=== PATIENT | male | born 1980 | race Caucasian/White ===

== ENCOUNTER 2017-02-16 13:39 | Inpatient (IN) | payer MEDICAID, OTHER ==
--- NOTE | 2017-02-16 14:00 | ED ---
Psych HPI - General Stated Complaint: Mental Health Time Seen by Provider: 02/16/17 13:50 Source: patient, EMS, RN notes reviewed Mode of arrival: EMS Limitations: no limitations - History of Present Illness Initial Comments: 36-year-old male presents emergency department via EMS from [place] for mental health evaluation. Patient states she has a history of schizophrenia states that he was on medication but states that he was in [facility] stopped taking them. Patient states that he stated he just did not need them anymore. Patient states that he does have a history of heroin and methamphetamine use. Patient states he is currently at rehab day 2 of these. Patient states that his been having ongoing issues of hallucinations. Patient states that he sees and hears people talking to home. Patient states that his family and kids take videos of them doing these things and states that he cannot stop them. Patient denies any homicidal or suicidal thoughts. Denies any alcohol use - Related Data Home Medications Medication Instructions Recorded Confirmed No Known Home Medications [No 02/16/17 02/16/17 Known Home Medications] Allergies Allergy/AdvReac Type Severity Reaction Status Date / Time Penicillins Allergy Unknown Verified 02/16/17 14:41 Review of Systems ROS Statement: Those systems with pertinent positive or pertinent negative responses have been documented in the HPI. ROS Other: All systems not noted in ROS Statement are negative. Past Medical History Past Medical History: No Reported History History of Any Multi-Drug Resistant Organisms: None Reported Past Surgical History: No Surgical Hx Reported Past Psychological History: ADD/ADHD, Schizophrenia Smoking Status: Current every day smoker Past Drug Use History: Cocaine, Heroin, IV Drug Use, Methamphetamine, Opiates, Prescription Drug Abuse General Exam Limitations: no limitations General appearance: alert, in no apparent distress Head exam: Present: atraumatic, normocephalic, normal inspection Eye exam: Present: normal appearance, PERRL, EOMI. Absent: scleral icterus, conjunctival injection, periorbital swelling ENT exam: Present: normal exam, mucous membranes moist Neck exam: Present: normal inspection. Absent: tenderness, meningismus, lymphadenopathy Respiratory exam: Present: normal lung sounds bilaterally. Absent: respiratory distress, wheezes, rales, rhonchi, stridor Cardiovascular Exam: Present: regular rate, normal rhythm, normal heart sounds. Absent: systolic murmur, diastolic murmur, rubs, gallop, clicks Neurological exam: Present: alert, oriented X3, CN II-XII intact Psychiatric exam: Present: anxious. Absent: homicidal ideation, suicidal ideation Skin exam: Present: warm, dry, intact, normal color. Absent: rash Course Vital Signs 02/16/17 02/16/17 13:53 15:42 Temperature 97.8 F 96.7 F L Pulse Rate 111 H 91 Respiratory 18 20 Rate Blood Pressure 106/61 121/81 O2 Sat by Pulse 98 97 Oximetry Medical Decision Making - Lab Data Lab Results 02/16/17 Range/Units 14:18 Urine Opiates Screen Detected H (NotDetected) Ur Oxycodone Screen Not Detected (NotDetected) Urine Methadone Screen Not Detected (NotDetected) Ur Propoxyphene Screen Not Detected (NotDetected) Ur Barbiturates Screen Not Detected (NotDetected) U Tricyclic Antidepress Not Detected (NotDetected) Ur Phencyclidine Scrn Not Detected (NotDetected) Ur Amphetamines Screen Detected H (NotDetected) U Methamphetamines Scrn Detected H (NotDetected) U Benzodiazepines Scrn Detected H (NotDetected) Urine Cocaine Screen Not Detected (NotDetected) U Marijuana (THC) Screen Not Detected (NotDetected) Disposition Clinical Impression: Psychosis, Schizophrenia Disposition: ADMITTED IP TO THIS [facility] Condition: Stable Referrals: None,Stated [Primary Care Provider] - 1-2 days
[2017-02-16] MEDS ORDERED: MAG HYDROX/AL HYDROX/SIMETH 30 ML CUP PO PRN (20:55)
[2017-02-16] MEDS ORDERED: ACETAMINOPHEN TAB 325 MG TAB PO PRN (20:55)
[2017-02-16] MEDS ORDERED: MAGNESIUM HYDROXIDE 2,400 MG/10 ML CUP PO PRN (20:55)
[2017-02-16] MEDS ORDERED: cloNIDine HCL 0.1 MG TAB PO PRN (21:11)
[2017-02-16] MEDS ORDERED: LOPERAMIDE 2 MG CAP PO PRN (21:14)
[2017-02-16] MEDS ORDERED: ONDANSETRON 4 MG TAB PO PRN (21:15)
[2017-02-16] MEDS: NICOTINE 21MG/24HR PATCH TRANSDERM SCH (22:02)
[2017-02-16] MEDS: OLANZapine 5 MG TAB PO SCH (22:02)
[2017-02-17] MEDS: NICOTINE 21MG/24HR PATCH TRANSDERM SCH (09:08)
[2017-02-17 09:49] LABS: Basophils % (A) 0 %; CH 31.9; CHCM 35.4; Eosinophils # (A) 0.1 k/uL (0-0.7); Eosinophils % (A) 1 %; HCT 41.3 % (39.0-53.0); HDW 2.96; HGB 14.5 gm/dL (13.0-17.5); Luc # (Auto) 0.15; Luc % (Auto) 2; Lymphocytes # (A) 2.5 k/uL (1.0-4.8); Lymphocytes % (A) 36 %; MCH 31.9 pg (25.0-35.0); MCHC 35.2 g/dL (31.0-37.0); MCV 90.5 fL (80.0-100.0); Mean Platelet Volume 6.9; Monocytes # (A) 0.3 k/uL (0-1.0); Monocytes % (A) 4 %; Neutrophils # (A) 3.8 k/uL (1.3-7.7); Neutrophils % (A) 56 %; RBC 4.57 m/uL (4.30-5.90); RDW 12.6 % (11.5-15.5); WBC 6.9 k/uL (3.8-10.6); WBC (Perox) 7.08
[2017-02-17 10:24] LABS: ALT 70 U/L (21-72); AST 44 U/L (17-59); Alkaline Phosphatase 92 U/L (38-126); Anion Gap 12 mmol/L; Blood Urea Nitrogen 12 mg/dL (9-20); Calcium 9.7 mg/dL (8.4-10.2); Carbon Dioxide 31 mmol/L (22-30); Chloride 99 mmol/L (98-107); Non-African American GFR(MDRD) >60 (>60 ml/min/1.73 sqM); Potassium 3.8 mmol/L (3.5-5.1); Sodium 142 mmol/L (137-145); Total Bilirubin 0.4 mg/dL (0.2-1.3); Total Protein 7.8 g/dL (6.3-8.2)
[2017-02-17 10:33] LABS: Glucose 50 mg/dL (74-99)
[2017-02-17 10:42] LABS: Glucose,Whole Blood 90 mg/dL (75-99)
--- NOTE | 2017-02-17 16:03 | P.HP ---
Psychiatric H&P - . H&P Date: 02/17/17 History & Physical: Allergies Allergy/AdvReac Type Severity Reaction Status Date / Time Penicillins Allergy Unknown Verified 02/16/17 14:41 Vital Signs Temp 97.7 F 02/17/17 06:54 Pulse 89 02/17/17 06:54 Resp 16 02/17/17 06:54 BP 106/68 02/17/17 06:54 Pulse Ox 97 02/16/17 15:42 Intake & Output 02/16/17 02/17/17 02/17/17 18:59 06:59 18:59 Weight 83.915 kg Laboratory Last Values WBC 6.9 k/uL (3.8-10.6) 02/17/17 09:11 RBC 4.57 m/uL (4.30-5.90) 02/17/17 09:11 Hgb 14.5 gm/dL (13.0-17.5) 02/17/17 09:11 Hct 41.3 % (39.0-53.0) 02/17/17 09:11 MCV 90.5 fL (80.0-100.0) 02/17/17 09:11 MCH 31.9 pg (25.0-35.0) 02/17/17 09:11 MCHC 35.2 g/dL (31.0-37.0) 02/17/17 09:11 RDW 12.6 % (11.5-15.5) 02/17/17 09:11 Plt Count 263 k/uL (150-450) 02/17/17 09:11 Neutrophils % 56 % 02/17/17 09:11 Lymphocytes % 36 % 02/17/17 09:11 Monocytes % 4 % 02/17/17 09:11 Eosinophils % 1 % 02/17/17 09:11 Basophils % 0 % 02/17/17 09:11 Neutrophils # 3.8 k/uL (1.3-7.7) 02/17/17 09:11 Lymphocytes # 2.5 k/uL (1.0-4.8) 02/17/17 09:11 Monocytes # 0.3 k/uL (0-1.0) 02/17/17 09:11 Eosinophils # 0.1 k/uL (0-0.7) 02/17/17 09:11 Basophils # 0.0 k/uL (0-0.2) 02/17/17 09:11 Sodium 142 mmol/L (137-145) 02/17/17 09:11 Potassium 3.8 mmol/L (3.5-5.1) 02/17/17 09:11 Chloride 99 mmol/L (98-107) 02/17/17 09:11 Carbon Dioxide 31 mmol/L (22-30) H 02/17/17 09:11 Anion Gap 12 mmol/L 02/17/17 09:11 BUN 12 mg/dL (9-20) 02/17/17 09:11 Creatinine 0.80 mg/dL (0.66-1.25) 02/17/17 09:11 Est GFR (MDRD) Af Amer >60 (>60 ml/min/1.73 sqM) 02/17/17 09:11 Est GFR (MDRD) Non-Af >60 (>60 ml/min/1.73 sqM) 02/17/17 09:11 Glucose 50 mg/dL (74-99) L* 02/17/17 09:11 POC Glucose (mg/dL) 90 mg/dL (75-99) 02/17/17 10:36 POC Glu [employer] ID Carlee Trevizo 02/17/17 10:36 Calcium 9.7 mg/dL (8.4-10.2) 02/17/17 09:11 Total Bilirubin 0.4 mg/dL (0.2-1.3) 02/17/17 09:11 AST 44 U/L (17-59) 02/17/17 09:11 ALT 70 U/L (21-72) 02/17/17 09:11 Alkaline Phosphatase 92 U/L (38-126) 02/17/17 09:11 Total Protein 7.8 g/dL (6.3-8.2) 02/17/17 09:11 Albumin 4.5 g/dL (3.5-5.0) 02/17/17 09:11 Urine Opiates Screen Detected (NotDetected) H 02/16/17 14:18 Ur Oxycodone Screen Not Detected (NotDetected) 02/16/17 14:18 Urine Methadone Screen Not Detected (NotDetected) 02/16/17 14:18 Ur Propoxyphene Screen Not Detected (NotDetected) 02/16/17 14:18 Ur Barbiturates Screen Not Detected (NotDetected) 02/16/17 14:18 U Tricyclic Antidepress Not Detected (NotDetected) 02/16/17 14:18 Ur Phencyclidine Scrn Not Detected (NotDetected) 02/16/17 14:18 Ur Amphetamines Screen Detected (NotDetected) H 02/16/17 14:18 U Methamphetamines Scrn Detected (NotDetected) H 02/16/17 14:18 U Benzodiazepines Scrn Detected (NotDetected) H 02/16/17 14:18 Urine Cocaine Screen Not Detected (NotDetected) 02/16/17 14:18 U Marijuana (THC) Screen Not Detected (NotDetected) 02/16/17 14:18 02/17/17 15:44 Identification: Patient is a 36-year-old male who was transferred from [facility] after he began to voice auditory hallucinations, having paranoid thoughts. He had gone to [facility] for rehab from using crystal methamphetamine and heroin IV. History of Present Illness: Patient states that he was at [facility] for 2 days, and on the day of admission prior to going to [facility] he shot up with methamphetamine IV. Patient states that he also had a raid on his house by the drug task force at [place] 4 days prior to his admission to [facility], stating they did not find any drugs at his house. Patient states that for the last 3 months he has been using crystal methamphetamine and heroin IV and has also been using alcohol fifth a day for the last 6 months. Patient states when he went to [facility] he began to hear voices, a person called Brad but he states now he couldn't tell me if it was in his head or if that was other people there. He states he felt that people were watching him, talking about him and was becoming paranoid. He states that he did not have any suicidal ideation and there and states that he had not slept for at least 4 days prior to going to [facility], and did not sleep why he was there. He also stated that he was having visual hallucinations of seeing light flashes while he was at [facility] and has when he is used methamphetamine in the past. Patient is not able to endorse any manic symptoms, depressive symptoms and states that he has not had the above psychotic symptoms at any other time. Patient states that he has never had any suicidal thoughts and has never made any suicide attempts in the past. Patient was recently released from senior care 8 months ago and is currently on parole until June 13. He states he has been routinely drug tested by his privacy officer on a weekly basis. He states that he was using alcohol while he was in senior care. Past Psychiatric History: Denies any prior psychiatric inpatient treatment or psychiatric outpatient treatment. He states as a child he was placed on Ritalin by his heating unit installer for ADHD and was on it for 5 years but quit himself. He states he has been at [facility] on 2 prior occasions once in 2004 and once in 2010 he left after 6 days on both occasions. He has never attended any AA or NA meetings. Past Medical/Surgical History: Patient states that he has no medical history and has never had any surgeries and has an ALLERGY to penicillin. Home Medications Medication Instructions Recorded Confirmed No Known Home Medications [No 02/16/17 02/16/17 Known Home Medications] Family History: Patient states he has a maternal cousin who is diagnosed with schizophrenia, his father is an alcohol abuser and he states he has a paternal uncle who completed suicide Social History: Patient was born and raised in [place] and both of his parents are alive. He has one brother. He states he quit school at the 11th grade and has never obtained a GED. He reports that he has been working in [employer] and last worked 1 month ago but was fired due to the number of absences that he had. He has never been and has one daughter age 9 from a prior partner with whom he shares custody. Patient states that his current partner is and that she does not use any drugs or alcohol. They have been together for 3 years. He denies any history of abuse. Substance Use History: Patient states he began using marijuana at the age of 21 but is not used it recently, began using cocaine and heroin IV at the age of 24 and began using methamphetamine at the age of 26. He reports his alcohol use has been a pint a day, he began using at the age of 26 and has used this much since his release from senior care 8 months ago. Patient has been using crystal meth amphetamine and heroin IV on a daily basis for the last 3 months. Patient does use tobacco products. 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 Patient has also been charged with attempted larceny of a firearm, maintaining a drug house 2 and has spent a total of 8 years in senior care. Mental Status:Appearance/Attitude: Patient is dressed in a hospital gown, makes good eye contact and is cooperative. Behavior: He did not display any psychomotor agitation or retardation. Speech/Language: Patient's speech was spontaneous and of normal volume and rhythm and he was coherent. Thought Process: Patient was goal-directed and there is no evidence of circumstantial or tangential thought and no loose associations or flight of ideas. Thought Content: Patient reports that he was hearing voices at [facility], identifying him as Brad but states that he was not telling him to do anything and states that he is currently not hearing those voices, he states that he was seeing light flashes but is currently not having those anymore. Patient states he is still slightly suspicious that people are talking about him , watching him states that he was more paranoid when he was at [facility]. Patient states that he had not slept for 4 days prior to going to [facility] and did not sleep why he was there but reports that he did sleep last evening and has been able to eat here today without any nausea or vomiting. He also reports that his thinking is much clearer Suicidal/Homicidal Ideation: Patient denies any current suicidal or homicidal ideation. Sensorium/Cognition: Patient is alert and oriented to person, place, and time and his memory is grossly intact. Mood/Affect: Patient's mood is slightly guarded and his affect is appropriate. Insight/Judgement: Patient's insight and judgment are poor. Intellectual Functioning: Patient's intellectual functioning appears average. Strength/Weaknesses: Patient has a supportive partner/substance abuse Assessment: Patient was transferred from [facility] after he was reporting paranoid ideation and auditory hallucinations as well as visual hallucinations which appear to be related to his withdrawal from methamphetamine and heroin use. Patient was also abusing alcohol prior to his admission. Patient reports he is feeling better now and has been taking Zyprexa 15 mg he thinks at [facility]. Patient is no longer verbalizing auditory hallucinations but still remains slightly paranoid but states he is now sleeping and eating better. Her social work assessment in speaking with patient's significant other she stated that his mother reported that he was diagnosed with schizophrenia as a child. Admission Diagnoses: Substance induced psychotic disorder, rule out schizophrenia, methamphetamine use disorder, severe; opioid use disorder, severe ; alcohol use disorder, moderate Plan: Patient was admitted on a voluntary basis, routine laboratory studies were ordered in medical consultation was requested. Patient was also ordered group and activity therapy and was placed on routine precautions. Patient was continued on Zyprexa 15 mg at bedtime to target his psychotic symptoms. Patient was also observed for withdrawal and supportive treatment was ordered. Patient is requesting to return to [facility] after he is stabilized here to continue his rehab. Patient requires hospitalization to stabilize his psychotic symptoms. 02/17/17 15:58 02/17/17 16:01
--- NOTE | 2017-02-17 16:04 | P.HPMEDMHU ---
History of Present Illness H&P Date: 02/17/17 Chief Complaint: Shaking Patient is a 36-year-old male past medical history of heroin and methamphetamine addiction, tobacco abuse, and alcohol abuse who initially was at [facility] for detox. He developed hallucinations there and was subsequently transferred to our psychiatry unit. We have been asked to see him in medical evaluation. Patient seen and examined in library. He states that he is having withdrawal from alcohol and heroin. He states he has had this many times before when he has detox. He reports nausea, tremors, decreased appetite, not having 8 anything in several days, diaphoresis, and a woozy feeling. He has no other complaints currently. He does admit to me that he sometimes sees things that are not there. He believes he only needs withdrawal care. Discussed with nursing and blood sugar was slightly low this morning. Review of Systems General: Positive chills, + tremor, no weight loss/weight gain, + decreased appetite Eyes: No double vision, no unusual blurry vision, no loss of vision ENT: No rhinorrhea, congestion, no trush Cardiovascular: No chest pain, no palpitations, no syncope, no edema, Noo paroxysmal nocturnal dyspnea, No dizziness Pulmonary: No shortness of breath, no wheezing, no cough, hemoptysis Abdominal: No abdominal pain, no constipation, no diarrhea, + nausea/vomiting, no distention Genitourinary: No dysuria, no urinary frequency, no hematuria, no unusual discharge/odor Neuro: + Tremor + dizziness , No unusual paresthesias, no unusual paresis/ paralysis, no headache Dermatologic: No unusual rashes, no unusual lesions, no unusual changes in nails Endocrinology: No intolerance to heat/cold, no excessive thirst,] no unusual fatigue Hematologic: No unusual bruising or bleeding, no unusual cervical lymphadenopathy Psychiatric: Positive hallucinations, positive increased sleep during the day Past Medical History Past Medical History: No Reported History History of Any Multi-Drug Resistant Organisms: None Reported Past Surgical History: No Surgical Hx Reported Past Psychological History: ADD/ADHD, Schizophrenia Smoking Status: Current every day smoker Past Alcohol Use History: Heavy Past Drug Use History: Cocaine, Heroin, IV Drug Use, Methamphetamine, Opiates, Prescription Drug Abuse Additional History: Patient denies any family history of heart disease, stroke, diabetes Medications and Allergies Home Medications Medication Instructions Recorded Confirmed Type No Known Home Medications [No 02/16/17 02/16/17 History Known Home Medications] Allergies Allergy/AdvReac Type Severity Reaction Status Date / Time Penicillins Allergy Unknown Verified 02/16/17 14:41 Physical Exam Osteopathic Statement: *. No significant issues noted on an osteopathic structural exam other than those noted in the History and Physical/Consult. Vitals: Vital Signs Temp Pulse Resp BP BP 02/17/17 06:54 97.7 F 89 16 106/68 02/16/17 22:06 108 H 16 102/67 02/16/17 20:31 96.7 F L 93 18 110/70 General: non toxic, no distress, appears at stated age, normal weight Derm: no rashes, no lesions, no ulcers, no unusual ecchymoses Head: atraumatic, normocephalic, symmetric Eyes: EOMI, no lid lag, anicteric sclera, pupils equal round reactive to light ENT: no post nasal drip, no thrush , nearest patent, no pharyngeal erythema Neck: No thyromegaly, no cervical lymphadenopathy, trachea midline, supple Mouth: no lip lesion, mucus membranes moist Cardiovascular: + Diaphoresis, S1S2 reg, no murmur, positive posterior tibial pulse bilateral, no edema , no JVD, no clubbing, no cyanosis, capillary refill less than 2 seconds Lungs: CTA bilateral, no rhonchi, no rales , no accessory muscle use Abdominal: soft, nontender to palpation, no guarding, no appreciable organomegaly, normal bowel sounds Ext: no gross muscle atrophy, muscle strength 5 out of 5 in all 4 extremities grossly, no contractures, Neuro: CN II-XI grossly intact, light touch intact all 4 extremities, finger to nose within normal limits, Psych: Alert, oriented, anxious, tremulous, fidgety Cranial Nerve Examination - Cranial Nerves Cranial Nerve II- Optic: Intact Cranial Nerve III- Oculomotor: Intact Cranial Nerve IV- Trochlear: Intact Cranial Nerve V- Trigeminal: Intact Cranial Nerve - Abducens: Intact Cranial Nerve VII- Facial: Intact Cranial Nerve VIII- Auditory: Intact Cranial Nerve IX- Glossopharyngeal: Intact Cranial Nerve X- Vagus: Intact Cranial Nerve XI- Accessory: Intact Cranial Nerve XII- Hypoglossal: Intact Results CBC & Chem 7: 02/17/17 09:11 02/17/17 09:11 Labs: Abnormal Lab Results - Last 24 Hours (Table) 02/17/17 Range/Units 09:11 Carbon Dioxide 31 H (22-30) mmol/L Glucose 50 L* (74-99) mg/dL Assessment and Plan Plan: 1. Hypoglycemia-likely secondary to decreased oral intake, patient states he was finally able to eat today, check fasting blood sugar tomorrow, discussed with nursing to call our service should this be low. 2. EtOH abuse-patient reports to me that he drinks approximately 1 pint daily, will defer withdrawal care to psychiatry team, discussed with nurse. 3. Illicit drug abuse-continue symptom control for withdrawal with clonidine, Imodium, and Zofran 4. Schizophrenia-management per psychiatry Thank you for allowing us to participate in the care of this patient. We will follow peripherally. Do not hesitate to contact us with questions. Someone can be reached from the [facility] hospitalist group at all hours of the day at [phone].
[2017-02-17] MEDS: OLANZapine 5 MG TAB PO SCH (21:41)
[2017-02-17] MEDS: LORazepam 1 MG TAB PO PRN (21:43)
[2017-02-18 06:39] LABS: Glucose,Whole Blood 98 mg/dL (75-99)
[2017-02-18] MEDS: NICOTINE 21MG/24HR PATCH TRANSDERM SCH (11:41)
--- NOTE | 2017-02-18 11:42 | P.PN ---
Progress Note - Text Interval History: Patient is a 36-year-old male who is seen this morning and he was in his room lying on his bed. Patient reports that he slept last evening fairly well and has been eating about 50% of his meals and states he is not having any vomiting. Patient reports that he is not hearing voices and not seeing things and is no longer feeling paranoid. Patient reports no suicidal thoughts. Patient states that he only has the voices and paranoid ideation when he is taking methamphetamine and is unable to relate a history of having had the symptoms when not using methamphetamine. Patient reports that he is interested in returning to inpatient rehab, he reports no side effects from the Zyprexa. Mental Status: Appearance/Attitude: Patient is dressed in a hospital gown and makes good eye contact and is cooperative. Behavior: Patient displays no psychomotor agitation or retardation, reports that he is feeling slightly jittery. Speech/Language: Patient's speech is spontaneous and of normal volume and rhythm and he is coherent. Thought Process: Patient is goal-directed there is no evidence of circumstantial or tangential thought and no loose associations or flight of ideas. Thought Content: Patient denies any auditory or visual hallucinations and no delusions or paranoid ideation were elicited. Patient states that he is no longer seeing things or hearing voices as he was when he was at [facility] and states that he is no longer feeling paranoid. Patient states that these symptoms only occur when he is using methamphetamine. Patient states that he slept fairly well last evening and has been eating about 50% of his meals and is not reporting any vomiting. Suicidal/Homicidal Ideation: Patient is not currently suicidal or homicidal Sensorium/Cognition: Patient is alert and oriented to person, place, and time and his memory is grossly intact. Mood/Affect: Patient's mood is stable and his affect is slightly blunted. Insight/Judgement: Patient's insight and judgment are poor. Assessment: Patient continues on Zyprexa 50 mg at bedtime and reports no further auditory or visual hallucinations and no paranoid ideation, patient is sleeping better and states that his appetite is improving and he is not having any episodes of vomiting. Patient reports that he still feels slightly jittery but no other symptoms of withdrawal. Patient is not having any side effects from the Zyprexa. Patient continues to report an interest in returning to inpatient rehab once he is discharged from the hospital. Patient's vital signs of been stable. Plan: Patient will continue on Zyprexa 50 mg at bedtime to target his psychotic symptoms which appear to be related to his use of methamphetamine, the patient is not able to give me a history of having auditory hallucinations, paranoid ideation in the past unless it was associated with his use of methamphetamine. Patient is not having any further psychotic symptoms, consider discharge in the next day or 2. Patient will return to inpatient rehab.
[2017-02-18] MEDS: LORazepam 1 MG TAB PO PRN (16:06)
[2017-02-18] MEDS: OLANZapine 5 MG TAB PO SCH (20:55)
[2017-02-19] MEDS: LORazepam 1 MG TAB PO PRN (00:50)
[2017-02-19 06:28] VITALS: BP 108/74; PULSE 120; RESP 18; TEMP 97.7
[2017-02-19] MEDS: NICOTINE 21MG/24HR PATCH TRANSDERM SCH ×2 (10:34→10:37)
--- NOTE | 2017-02-19 13:53 | P.DS ---
Providers Date of admission: 02/16/17 19:35 Expected date of discharge: 02/19/17 Attending physician: Jennifer Varela MD Consults: 02/16/17 20:55 Consult Physician Routine Consulting Provider: Aramis Sanon Consult Reason/Comments: H and P Do you want consulting provider notified?: Yes Primary care physician: Stated None Hospital Course: Discharge Diagnoses: Methamphetamine-induced psychotic disorder, with use, severe; alcohol use disorder, moderate; opioid use disorder, severe Reason for Admission: Patient is a 36-year-old male who was transferred from [place] where he began to have auditory hallucinations and paranoid thoughts. Patient had gone to [place] to rehab from using crystal methamphetamine and IV heroin. Patient states that he had been at [facility] for 2 days when his symptoms began and he states that he shot up with IV methamphetamine shortly prior to his admission. Patient also reported to me that there've been a raid on his house by the [place] police drug task force 4 days prior to his admission to [facility] but they did not find any drugs in his home. Patient states that for the last 3 months he has been using crystal methamphetamine and heroin IV daily and he has also been using alcohol fifth a day for the last 3 months. Patient states that when he went to [place] he began hearing voices, person called Brad and he states that he felt people were watching him, talking about him and he was becoming paranoid. He states that he had no suicidal ideation and states that he had not slept for 4 days prior to going to have [facility] and had not slept since he had been there. He also reported seeing flashes of light while he was at [facility]. Patient was recently released from halfway 8 months ago and is currently on parole until June 13 and he states that he has been routinely tested by his product safety officer on a weekly basis. Patient reports that he has auditory hallucinations and paranoid ideation whenever he is using methamphetamine and when he stops using it. Patient also reports that he sees flashing lights are bright lights when he is using methamphetamine. Hospital Course: Patient was admitted on a voluntary basis, placed on routine precautions, routine laboratory studies were obtained and a medical consultation was obtained. Patient was also ordered group and activity therapy. Patient was placed on Ativan as needed for alcohol withdrawal symptoms. Patient was also placed on clonidine and Imodium as needed for opioid withdrawal. Patient was started on Zyprexa 15 mg at bedtime and he reports that his auditory hallucinations stopped and he was no longer feeling paranoid. Patient states that he was sleeping while he was in the hospital and felt much more rested and he was able to eat. Patient did complain of still feeling "crappy" from his withdrawal from methamphetamine and heroin. Patient did not participate in many of the groups and activities due to his not feeling physically well. Patient continued to express an interest in returning to [place] to complete his rehab. Patient reported no side effects from the Zyprexa. Discharge Mental Status:Appearance/Attitude: Patient was dressed in a hospital gown, made good eye contact and was cooperative. Behavior: Patient did not exhibit any psychomotor agitation or retardation Speech/Language: Patient's speech was spontaneous and of normal volume and rhythm and he was coherent. Thought Process: Patient was goal-directed there was no evidence of circumstantial or tangential thought and no loose associations or flight of ideas. Thought Content: Patient denied any auditory or visual hallucinations, he reported he was no longer feeling paranoid and no delusions were elicited. Patient states that he is sleeping and eating well but continued to not feel well physically, which she described as feeling like "crap". Patient reported he was not having any nausea or vomiting and no diarrhea. Suicidal/Homicidal Ideation: Patient denied any current suicidal or homicidal ideation. Sensorium/Cognition: Patient was alert and oriented to person, place, and time and his memory is grossly intact. Mood/Affect: Patient's mood is euthymic and his affect is appropriate. Insight/Judgement: Patient's insight and judgment are fair. Laboratory Last Values WBC 6.9 k/uL (3.8-10.6) 02/17/17 09:11 RBC 4.57 m/uL (4.30-5.90) 02/17/17 09:11 Hgb 14.5 gm/dL (13.0-17.5) 02/17/17 09:11 Hct 41.3 % (39.0-53.0) 02/17/17 09:11 MCV 90.5 fL (80.0-100.0) 02/17/17 09:11 MCH 31.9 pg (25.0-35.0) 02/17/17 09:11 MCHC 35.2 g/dL (31.0-37.0) 02/17/17 09:11 RDW 12.6 % (11.5-15.5) 02/17/17 09:11 Plt Count 263 k/uL (150-450) 02/17/17 09:11 Neutrophils % 56 % 02/17/17 09:11 Lymphocytes % 36 % 02/17/17 09:11 Monocytes % 4 % 02/17/17 09:11 Eosinophils % 1 % 02/17/17 09:11 Basophils % 0 % 02/17/17 09:11 Neutrophils # 3.8 k/uL (1.3-7.7) 02/17/17 09:11 Lymphocytes # 2.5 k/uL (1.0-4.8) 02/17/17 09:11 Monocytes # 0.3 k/uL (0-1.0) 02/17/17 09:11 Eosinophils # 0.1 k/uL (0-0.7) 02/17/17 09:11 Basophils # 0.0 k/uL (0-0.2) 02/17/17 09:11 Sodium 142 mmol/L (137-145) 02/17/17 09:11 Potassium 3.8 mmol/L (3.5-5.1) 02/17/17 09:11 Chloride 99 mmol/L (98-107) 02/17/17 09:11 Carbon Dioxide 31 mmol/L (22-30) H 02/17/17 09:11 Anion Gap 12 mmol/L 02/17/17 09:11 BUN 12 mg/dL (9-20) 02/17/17 09:11 Creatinine 0.80 mg/dL (0.66-1.25) 02/17/17 09:11 Est GFR (MDRD) Af Amer >60 (>60 ml/min/1.73 sqM) 02/17/17 09:11 Est GFR (MDRD) Non-Af >60 (>60 ml/min/1.73 sqM) 02/17/17 09:11 Glucose 50 mg/dL (74-99) L* 02/17/17 09:11 POC Glucose (mg/dL) 98 mg/dL (75-99) 02/18/17 06:36 POC Glu File Clerk Data Entry Melly Varela 02/18/17 06:36 Calcium 9.7 mg/dL (8.4-10.2) 02/17/17 09:11 Total Bilirubin 0.4 mg/dL (0.2-1.3) 02/17/17 09:11 AST 44 U/L (17-59) 02/17/17 09:11 ALT 70 U/L (21-72) 02/17/17 09:11 Alkaline Phosphatase 92 U/L (38-126) 02/17/17 09:11 Total Protein 7.8 g/dL (6.3-8.2) 02/17/17 09:11 Albumin 4.5 g/dL (3.5-5.0) 02/17/17 09:11 Urine Opiates Screen Detected (NotDetected) H 02/16/17 14:18 Ur Oxycodone Screen Not Detected (NotDetected) 02/16/17 14:18 Urine Methadone Screen Not Detected (NotDetected) 02/16/17 14:18 Ur Propoxyphene Screen Not Detected (NotDetected) 02/16/17 14:18 Ur Barbiturates Screen Not Detected (NotDetected) 02/16/17 14:18 U Tricyclic Antidepress Not Detected (NotDetected) 02/16/17 14:18 Ur Phencyclidine Scrn Not Detected (NotDetected) 02/16/17 14:18 Ur Amphetamines Screen Detected (NotDetected) H 02/16/17 14:18 U Methamphetamines Scrn Detected (NotDetected) H 02/16/17 14:18 U Benzodiazepines Scrn Detected (NotDetected) H 02/16/17 14:18 Urine Cocaine Screen Not Detected (NotDetected) 02/16/17 14:18 U Marijuana (THC) Screen Not Detected (NotDetected) 02/16/17 14:18 Risk Assessment: Patient's risk for self-harm is low as he has never had any suicide attempts in the past, states he has never had any suicidal ideation. Discharge Plan: Patient will be discharged to return to [place] to complete his rehab program. Patient will continue on Zyprexa 15 mg at bedtime to target his psychotic symptoms. Patient was encouraged to complete his rehab at [place] in maintaining his sobriety after discharge. Patient Condition at Discharge: Stable Plan - Discharge Summary New Discharge Prescriptions: New OLANZapine [ZyPREXA] 15 mg PO HS #14 tablet Discharge Medication List OLANZapine [ZyPREXA] 15 mg PO HS #14 tablet 02/19/17 [Rx] Follow up Appointment(s)/Referral(s): [facility] [Outside] - 1 Week (Return to [facility] and pt to follow up with [facility] therapist [facility] to coordinate.) None,Stated [Primary Care Provider] - 1-2 days Discharge Disposition: OTHER INSTITUTION NOT DEFINED
== END 2017-02-19 14:57 | DRG 897 ==
LOC: EC 13:39 → 3MHU 19:35
PROVIDERS: ADMIT Psychiatry & Neurology Psychiatry; ATTEND Psychiatry & Neurology Psychiatry
DX: F15.151 Other stimulant abuse with stimulant-induced psychotic disorder with hallucinations (principal); F11.251 Opioid dependence with opioid-induced psychotic disorder with hallucinations; F10.20 Alcohol dependence, uncomplicated; F17.200 Nicotine dependence, unspecified, uncomplicated; Z65.3 Problems related to other legal circumstances; Z88.0 Allergy status to penicillin
CPT/HCPCS: 80053; 80306; 82075; 85025; 99285

== ENCOUNTER 2019-07-20 11:07 | Emergency (ER) | payer MEDICAID, OTHER ==
[2019-07-20 11:37] VITALS: BP 131/90; PULSE 70; RESP 19; TEMP 97.7
[2019-07-20 12:48] LABS: Appearance,Urine Clear (Clear); Bilirubin,Urine Negative (Negative); Blood,Urine Negative (Negative); Color,Urine Yellow; Glucose,Urine (UA) Negative (Negative); Ketones,Urine Negative (Negative); Leukocyte Esterase,Urine Negative (Negative); Nitrite,Urine Negative (Negative); PH, Urine 5.5 (5.0-8.0); Protein,Urine Negative (Negative); Specific Gravity,Urine 1.015 (1.001-1.035); Urobilinogen,Urine <2.0 mg/dL (<2.0)
[2019-07-20 13:05] LABS: Amphetamine Screen,Urine Not Detected (NotDetected); Barbiturate Screen,Urine Not Detected (NotDetected); Benzodiazepines Screen,Urine Not Detected (NotDetected); Cocaine Screen,Urine Not Detected (NotDetected); Methadone Screen, Urine Not Detected (NotDetected); Opiate Screen,Urine Not Detected (NotDetected); Oxycodone Screen, Urine Not Detected (NotDetected); Phencyclidine Screen,Urine Not Detected (NotDetected); Tricyclic Antidepressant,Urine Not Detected (NotDetected); Urn Cannabinoid Scrn Not Detected (NotDetected)
--- NOTE | 2019-07-20 14:20 | ED ---
Psych HPI - General Chief Complaint: Psychiatric Symptoms Stated Complaint: pickup order Time Seen by Provider: 07/20/19 11:37 Source: police Mode of arrival: ambulatory - History of Present Illness Initial Comments: 39-year-old male presenting for pickup order for psychiatric evaluation. Patient states he does not know why he was picked up he states he recently gained custody of his children and feels that his ex- is out to get him. He states that he has no auditory visual hallucinations. Patient does not appear overtly paranoid during this history taking. Patient denies any homicidal or suicidal ideation. Patient denies any other symptoms. Please deny noting any abnormal behaviors upon bringing patient to the emergency department. Upon arrival patient appears well no signs of acute distress. Remaining review of systems negative, patient denies any recent fever, chills, shortness of breath, chest pain, back pain, abdominal pain, nausea or vomiting, numbness or tingling, dysuria or hematuria, constipation or diarrhea, headaches or visual changes, or any other complaints. - Related Data Home Medications Medication Instructions Recorded Confirmed Buprenorphine HCl/Naloxone HCl 1.5 film SL DAILY 07/20/19 07/20/19 [Suboxone 8 mg-2 mg Sl Film] QUEtiapine [SEROquel] 400 mg PO HS PRN 07/20/19 07/20/19 buPROPion HCL [Wellbutrin XL] 300 mg PO DAILY 07/20/19 07/20/19 Allergies Allergy/AdvReac Type Severity Reaction Status Date / Time Penicillins Allergy Unknown Verified 07/20/19 12:37 Review of Systems ROS Statement: Those systems with pertinent positive or pertinent negative responses have been documented in the HPI. ROS Other: All systems not noted in ROS Statement are negative. Past Medical History Past Medical History: No Reported History History of Any Multi-Drug Resistant Organisms: None Reported Past Surgical History: No Surgical Hx Reported Past Psychological History: ADD/ADHD, Anxiety, Depression, Schizophrenia Smoking Status: Current every day smoker Past Alcohol Use History: Heavy Past Drug Use History: Cocaine, Heroin, IV Drug Use, Methamphetamine, Opiates, Prescription Drug Abuse General Exam - General Exam Comments Initial Comments: General: The patient is awake and alert, in no distress, and does not appear acutely ill. Eye: +3 mm pupils are equal, round and reactive to light, extra-ocular movements are intact. No nystagmus. There is normal conjunctiva bilaterally. No signs of icterus. Ears, nose, mouth and throat: There are moist mucous membranes and no oral lesions. Neck: The neck is supple, there is no tenderness or JVD. Cardiovascular: There is a regular rate and rhythm. No murmur, rub or gallop is appreciated. Respiratory: Lungs are clear to auscultation, respirations are non-labored, breath sounds are equal. No wheezes, stridor, rales, or rhonchi. Gastrointestinal: Soft, non-distended, non-tender abdomen without masses or organomegaly noted. There is no rebound or guarding present. Musculoskeletal: Normal ROM, no tenderness. Strength 5/5. Sensation intact. Radial pulses equal bilaterally 2+. Neurological: A&O x 3. CN II-XII intact, There are no obvious motor or sensory deficits. Coordination appears grossly intact. Speech is normal. Skin: Skin is warm and dry and no rashes or lesions are noted. Psychiatric: Cooperative, appropriate mood & affect, normal judgment. Limitations: no limitations Course Vital Signs 07/20/19 11:33 Temperature 97.7 F Pulse Rate 70 Respiratory 19 Rate Blood Pressure 131/90 O2 Sat by Pulse 100 Oximetry Medical Decision Making - Medical Decision Making 39-year-old male presenting for pickup order for psychiatric evaluation. The pickup order states the patient has been acting paranoid. There is no evidence of paranoid behavior or thoughts on history and physical examination. Patient is medically clear for EPS evaluation however urinalysis did reveal evidence supportive of methamphetamine abuse which patient did admit to EPS. Patient does not appears acute psychotic, paranoid, homicidal nor suicidal. EPS evaluation patient spoke with psychiatry recommended discharge. Discussed for the primary follow-up for substance abuse the patient was discharged appearing well - Lab Data Lab Results 07/20/19 Range/Units 12:20 Urine Color Yellow Urine Appearance Clear (Clear) Urine pH 5.5 (5.0-8.0) Ur Specific [place] 1.015 (1.001-1.035) Urine Protein Negative (Negative) Urine Glucose (UA) Negative (Negative) Urine Ketones Negative (Negative) Urine Blood Negative (Negative) Urine Nitrite Negative (Negative) Urine Bilirubin Negative (Negative) Urine Urobilinogen <2.0 (<2.0) mg/dL Ur Leukocyte Esterase Negative (Negative) Urine Opiates Screen Not Detected (NotDetected) Ur Oxycodone Screen Not Detected (NotDetected) Urine Methadone Screen Not Detected (NotDetected) Ur Propoxyphene Screen Not Detected (NotDetected) Ur Barbiturates Screen Not Detected (NotDetected) U Tricyclic Antidepress Not Detected (NotDetected) Ur Phencyclidine Scrn Not Detected (NotDetected) Ur Amphetamines Screen Not Detected (NotDetected) U Methamphetamines Scrn Detected H (NotDetected) U Benzodiazepines Scrn Not Detected (NotDetected) Urine Cocaine Screen Not Detected (NotDetected) U Marijuana (THC) Screen Not Detected (NotDetected) Disposition Clinical Impression: Methamphetamine abuse, Evaluation by psychiatric service required Disposition: HOME SELF-CARE Condition: Good Instructions (If sedation given, give patient instructions): Methamphetamine Abuse (ED) Additional Instructions: Please use medication as discussed. Please follow-up with family doctor in the next 2 days. Please return to emergency room if the symptoms increase or worsen or for any other concerns. Is patient prescribed a controlled substance at d/c from ED?: No Referrals: Jermaine Dhaliwal MD [Primary Care Provider] - 1-2 days Time of Disposition: 14:19
== END 2019-07-20 14:31 | disposition home or self-care (01) ==
LOC: EC 11:07
DX: Z04.6 Encounter for general psychiatric examination, requested by authority (principal); F15.10 Other stimulant abuse, uncomplicated; F32.9 Major depressive disorder, single episode, unspecified; F41.9 Anxiety disorder, unspecified; F17.200 Nicotine dependence, unspecified, uncomplicated; Z88.0 Allergy status to penicillin; Z79.899 Other long term (current) drug therapy
CPT/HCPCS: 80306; 81003; 82075; 99284